=== PATIENT | female | born 1975 | race African-American/Black ===

== ENCOUNTER → 2021-02-01 00:40 | Outpatient (CLI) | payer OTHER, MEDICAID, SELFPAY ==
[2021-02-01 19:49] LABS: SARS-CoV-2 RNA PCR Negative
== END ==
PROVIDERS: PCP Internal Medicine; Visit Provider Obstetrics & Gynecology Gynecology
DX: Z01.812 Encounter for preprocedural laboratory examination (principal); Z20.822 Contact with and (suspected) exposure to COVID-19
CPT/HCPCS: C9803; U0003; U0005

== ENCOUNTER 2021-02-04 02:15 | Day surgery (SDC) | payer OTHER, MEDICAID, SELFPAY ==
[2021-01-22 11:35] VITALS: BMI 35.7
--- NOTE | 2021-02-04 07:43 | PM.HPGS ---
History of Present Illness History of Present Illness Consent: Risks, benefits, and alternatives have been discussed and questions answered. Patient agrees to proceed with procedure. Chief complaint: Menorrhagia, fibroids Narrative: Shelly Reyes is a 46 year old female with heavy cycles lasting for approximately 5 days using a tampon and pad which requires changing every 2 hours. Cycle timing is normal. Ultrasound shows an enlarged uterus with known fibroids. It is recommended to proceed with hysteroscopy, D&C and possible MyoSure. Risks of infection, bleeding, perforation, and fluid imbalance are reviewed. Patient's questions are answered. Patient states understanding and wishes to proceed. [facility] Past Medical History Medical History (Updated 02/04/21 @ 07:47 by Nirmala Ramirez MD) Anemia Asthma Heart murmur Hypertension (normal spontaneous vaginal delivery) x 1 term with cerclage x1 at 23 wks with cervical incompetence Surgical History Surgical History (Updated 02/04/21 @ 07:46 by Nirmala Ramirez MD) S/P ectopic treated with methotrexate not surgical Family History Family History (Updated 09/15/19 @ 13:51 by Faviola Griffin CMA) Father Cerebrovascular accident Hypertension Mother Hypertension Stented coronary artery Hyperlipidemia Rheumatoid arthritis Sibling Hypertension Rheumatoid arthritis Social History Social History (Updated 09/13/19 @ 19:43 by Dania Richey) Smoking status: Never smoker Second hand tobacco smoke exposure: Yes (parent smoked in house as a child) Alcohol intake: never Substance use: never Substance use type: does not use Living arrangements: with family Spiritual care concerns: No Agree to blood products: Yes Meds Home Medications and Allergies Home Medications Medication Instructions Recorded Confirmed Type amlodipine 10 mg PO DAILY 01/22/21 01/22/21 History cholecalciferol (vitamin D3) 125 mcg PO DAILY 01/22/21 01/22/21 History folic acid 400 mcg PO DAILY 01/22/21 01/22/21 History methimazole 5 mg PO DAILY 01/22/21 01/22/21 History omega-3 fatty acids [Fish Oil] 500 mg PO HS 01/22/21 01/22/21 History pyridoxine (vitamin B6) [Vitamin 500 mg PO HS 01/22/21 01/22/21 History B-6] vitamin F72-afzlq acid 1 tablet PO HS 01/22/21 01/22/21 History Allergies Allergy/AdvReac Type Severity Reaction Status Date / Time No Known Allergies Allergy Verified 01/22/21 11:31 Exam Const: General: healthy appearing and alert Orientation/consciousness: patient oriented x3 Resp: Effort & Inspection: normal respiratory effort Auscultation: clear to auscultation bilaterally Cardio: Rate: regular rate Rhythm: regular rhythm GI: GI Palp: Yes Soft to palpation, No Tenderness to palpation present (GI) and No Palpable mass present : External Female Exam: normal external appearance Speculum Exam - Vagina: normal appearance of the vagina and normal vaginal discharge Speculum Exam - Cervix: normal appearance of the cervix Bimanual exam- vagina & uterus: consistency normal and enlarged (at umbilicus) Bimanual Exam- Adnexa, other: normal adnexae and No adnexal tenderness Neuro: General: patient oriented x3 Assessment and Plan Assessment and plan (1) Menorrhagia: Code(s): N92.0 - Excessive and frequent menstruation with regular cycle Status: Acute Assessment and Plan: Plan is to proceed with hsyteroscopy with D&C and possible myosure if submucosal fibroids noted (2) Fibroids: Code(s): D21.9 - Benign neoplasm of connective and other soft tissue, unspecified Status: Acute
[2021-02-04 08:19] VITALS: BP 125/71; PULSE 77; RESP 16; TEMP 36.6; O2SAT 100
[2021-02-04] MEDS: ACETAMINOPHEN 500 MG TABLET 1000 MG PO (08:40)
[2021-02-04] MEDS: LACTATED RINGERS 1,000 ML 30 ML IV CONT ×2 (08:54→12:59)
--- NOTE | 2021-02-04 09:09 | WPDANESEPPF ---
Anes - Initial Pre Proc Eval Procedure: Operation Date: 02/04/21 10:30 Proposed Procedures p Hysteroscopy Dilation and Curettage With Possible Myosure - Nirmala Ramirez MD Date/Time: 02/04/21 09:09 Surgeon: Nirmala Ramirez MD Pre Op Diagnosis: Menorrhagia, fibroids Patient Data Age: 46 Gender: F Height: 5 ft 5 in Weight: 97.1 kg Last Vital Signs Temp 36.6 C 02/04/21 08:19 Pulse 77 02/04/21 08:19 Resp 16 02/04/21 08:19 BP 125/71 02/04/21 08:19 Pulse Ox 100 02/04/21 08:19 Allergies Allergy/AdvReac Type Severity Reaction Status Date / Time No Known Allergies Allergy Verified 02/04/21 08:23 Home Medications Medication Instructions Recorded Confirmed Type amlodipine 10 mg PO DAILY 01/22/21 02/04/21 History cholecalciferol (vitamin D3) 125 mcg PO DAILY 01/22/21 02/04/21 History folic acid 400 mcg PO DAILY 01/22/21 02/04/21 History methimazole 5 mg PO DAILY 01/22/21 02/04/21 History omega-3 fatty acids [Fish Oil] 500 mg PO HS 01/22/21 02/04/21 History pyridoxine (vitamin B6) [Vitamin 500 mg PO HS 01/22/21 02/04/21 History B-6] vitamin T25-pglwh acid 1 tablet PO HS 01/22/21 02/04/21 History Patient hx anesthesia problems: none Family hx anesthesia problems: none PMFSH Past Medical History Medical History Anemia Asthma Heart murmur Hypertension Hyperthyroidism (normal spontaneous vaginal delivery) x 1 term with cerclage x1 at 23 wks with cervical incompetence Surgical History Surgical History S/P ectopic treated with methotrexate not surgical Family History Family History Father Cerebrovascular accident Hypertension Mother Hypertension Stented coronary artery Hyperlipidemia Rheumatoid arthritis Sibling Hypertension Rheumatoid arthritis Social History Social History Smoking status: Never smoker Second hand tobacco smoke exposure: Yes (parent smoked in house as a child) Alcohol intake: never Substance use: never Substance use type: does not use Living arrangements: with family Spiritual care concerns: No Agree to blood products: Yes Anes - Eval Final PreProcedure Day of Procedure 02/04/21 09:09 Patient weight: obese Heart: regular rate and rhythm Lungs: clear to auscultation Airway: Mallampati scale class II Neurological: alert and oriented Last oral intake: >/= 8 hours ASA classification: III Emergent: no Anesthetic plan: proceed Anesthesia type and monitoring: general GIVS and standard monitoring Informed Consent: The patient's anesthetic plan and its attendant risks and benefits were discussed with the patient/family/POA. Questions were solicited and answers provided to the satisfaction of the patient/family/POA.
--- NOTE | 2021-02-04 11:25 | SUR.PREOP ---
pt informed of delay in procedure.
--- NOTE | 2021-02-04 12:56 | SUR.OPER ---
EBL:10cc
--- NOTE | 2021-02-04 13:01 | PM.PROC ---
Procedure Note - Detailed Date of procedure: 02/04/21 Pre-op diagnosis: Menorrhagia, fibroids Post-op diagnosis: same Procedure performed: D&C hysteroscopy Description of procedure: The patient was taken to the operating room and placed under anesthesia in the dorsal lithotomy position. She has prepped and draped in usual sterile fashion. The cervix is grasped on the anterior lip with a tenaculum, injected with 1% lidocaine, and dilated with Hegar. The uterus is sounded to 10cm. The diagnostic hysteroscope was placed with no abnormalities noted. The medium sharp curette is used to sharply curette the endometrium until a good uterine cry was noted in all areas. Minimal material is obtained consistent with a mostly atrophic appearance of the endometrium. All instruments are removed. The patient was awakened from anesthesia and taken to recovery in stable condition. Sponge, needle, and instrument counts are correct per the OR staff. Anesthesia: MAC and local Surgeon: Nirmala Ramirez MD Estimated blood loss (mL): 5 Drains: No Packing: No Pathology: yes (endometrial curettings) Complications: Other complications (fluid in 1000 fluid out 140) Condition: stable Disposition: PACU Findings: uterus 10 cm; grossly normal appearing endometrium
[2021-02-04 13:05] VITALS: BP 113/67; PULSE 65; RESP 14; O2SAT 100
[2021-02-04 13:25] VITALS: BP 132/80
[2021-02-04 13:50] VITALS: BP 134/80
[2021-02-04 14:10] VITALS: BP 131/72
== END 2021-02-04 14:30 | disposition home or self-care (01) ==
PROVIDERS: PCP Internal Medicine; Visit Provider Obstetrics & Gynecology Gynecology
PROC: 0U5B8ZZ Destruction of Endometrium, Via Natural or Artificial Opening Endoscopic (ICD-10-PCS; CPT 58563; principal; 2021-02-04 10:30)
DX: N92.0 Excessive and frequent menstruation with regular cycle (principal); N85.8 Other specified noninflammatory disorders of uterus; D64.9 Anemia, unspecified; J45.909 Unspecified asthma, uncomplicated; R01.1 Cardiac murmur, unspecified; E66.9 Obesity, unspecified; Z68.35 Body mass index [BMI] 35.0-35.9, adult; I10 Essential (primary) hypertension; E05.90 Thyrotoxicosis, unspecified without thyrotoxic crisis or storm
CPT/HCPCS: 58558; 88305; A9270; C9803; J2250; J2704; J3010; J7030; J7120; U0003; U0005

== ENCOUNTER → 2021-04-05 03:02 | Outpatient (CLI) | payer OTHER, MEDICAID, SELFPAY ==
[2021-04-05 19:50] LABS: SARS-CoV-2 RNA PCR Negative
== END ==
PROVIDERS: PCP Internal Medicine; Visit Provider Obstetrics & Gynecology Gynecology
DX: Z01.812 Encounter for preprocedural laboratory examination (principal); Z20.822 Contact with and (suspected) exposure to COVID-19
CPT/HCPCS: C9803; U0003; U0005

== ENCOUNTER 2021-04-08 00:58 | Day surgery (SDC) | payer OTHER, MEDICAID, SELFPAY ==
[2021-04-03 13:57] VITALS: BMI 34.4
[2021-04-08] MEDS: ACETAMINOPHEN 500 MG TABLET 1000 MG PO (06:35)
[2021-04-08 06:37] VITALS: BMI 34.6
[2021-04-08 06:38] VITALS: BP 140/77; PULSE 69; RESP 18; TEMP 36.5; O2SAT 100
--- NOTE | 2021-04-08 06:41 | WPDANESEPPF ---
Anes - Initial Pre Proc Eval Procedure: Operation Date: 04/08/21 07:30 Proposed Procedures p Hysteroscopy Geri Ablation - Nirmala Ramirez MD Date/Time: 04/08/21 06:41 Surgeon: Nirmala Ramirez MD Pre Op Diagnosis: menorrhagia Patient Data Age: 46 Gender: F Height: 1.65 m Weight: 94.4 kg Last Vital Signs Temp 36.5 C 04/08/21 06:38 Pulse 69 04/08/21 06:38 Resp 18 04/08/21 06:38 BP 140/77 04/08/21 06:38 Pulse Ox 100 04/08/21 06:38 Allergies Allergy/AdvReac Type Severity Reaction Status Date / Time No Known Allergies Allergy Verified 04/08/21 06:29 Home Medications Medication Instructions Recorded Confirmed Type amlodipine 10 mg PO DAILY 01/22/21 04/08/21 History cholecalciferol (vitamin D3) 125 mcg PO DAILY 01/22/21 04/08/21 History folic acid 400 mcg PO DAILY 01/22/21 04/08/21 History methimazole 5 mg PO DAILY 01/22/21 04/08/21 History omega-3 fatty acids [Fish Oil] 500 mg PO HS 01/22/21 04/08/21 History pyridoxine (vitamin B6) [Vitamin 500 mg PO HS 01/22/21 04/08/21 History B-6] vitamin X09-onwrk acid 1 tablet PO HS 01/22/21 04/08/21 History Patient hx anesthesia problems: none Family hx anesthesia problems: none PMFSH Past Medical History Medical History (Updated 04/08/21 @ 06:42 by Jarocho Hillman DO) Anemia Asthma Heart block AV second degree Heart murmur Hypertension Hyperthyroidism (normal spontaneous vaginal delivery) x 1 term with cerclage x1 at 23 wks with cervical incompetence Surgical History Surgical History S/P ectopic treated with methotrexate not surgical Family History Family History Father Cerebrovascular accident Hypertension Mother Hypertension Stented coronary artery Hyperlipidemia Rheumatoid arthritis Sibling Hypertension Rheumatoid arthritis Social History Social History Smoking status: Never smoker Alcohol intake: never Substance use: never Substance use type: does not use Living arrangements: with family Additional living arrangements comments: WITH SON Spiritual care concerns: No Agree to blood products: Yes Anes - Eval Final PreProcedure Day of Procedure 04/08/21 06:41 Patient weight: obese Heart: regular rate and rhythm Lungs: clear to auscultation and normal air movement Airway: Mallampati scale class II Neurological: alert and oriented Last oral intake: >/= 8 hours ASA classification: III Emergent: no Anesthetic plan: proceed Anesthesia type and monitoring: general GIVS and standard monitoring Informed Consent: The patient's anesthetic plan and its attendant risks and benefits were discussed with the patient/family/POA. Questions were solicited and answers provided to the satisfaction of the patient/family/POA.
[2021-04-08] MEDS: LACTATED RINGERS 1,000 ML 30 ML IV CONT (06:46)
--- NOTE | 2021-04-08 06:58 | PM.HPGS ---
History of Present Illness History of Present Illness Consent: Risks, benefits, and alternatives have been discussed and questions answered. Patient agrees to proceed with procedure. Chief complaint: menorrhagia Narrative: Shelly Reyes is a 46 year old female with heavy cycles for the past several years. She underwent hysteroscopy D and C with benign findings. Ultrasound shows intramural fibroids but there were no submucosal fibroids. Plan is to proceed with endometrial ablation for treatment. Other options were discussed but due to current cardiac history were declined. Patient was initially going to have a pacemaker placed however they have decided that is not necessary. Patient's blood pressure had been eratic but is now under good control. The risks of procedure including infection, bleeding, perforation, and device failure were all reviewed. The success of the ablation was also discussed. Patient voices understanding and agrees to proceed. Review of Systems Review of Systems: Narrative: not repeated day of surgery; patient states no changes in status PMFSH Past Medical History Medical History (Updated 04/08/21 @ 06:42 by Jarocho Hillman DO) Anemia Asthma Heart block AV second degree Heart murmur Hypertension Hyperthyroidism (normal spontaneous vaginal delivery) x 1 term with cerclage x1 at 23 wks with cervical incompetence Surgical History Surgical History S/P ectopic treated with methotrexate not surgical Family History Family History Father Cerebrovascular accident Hypertension Mother Hypertension Stented coronary artery Hyperlipidemia Rheumatoid arthritis Sibling Hypertension Rheumatoid arthritis Social History Social History Smoking status: Never smoker Alcohol intake: never Substance use: never Substance use type: does not use Living arrangements: with family Additional living arrangements comments: WITH SON Spiritual care concerns: No Agree to blood products: Yes Meds Home Medications and Allergies Home Medications Medication Instructions Recorded Confirmed Type amlodipine 10 mg PO DAILY 01/22/21 04/08/21 History cholecalciferol (vitamin D3) 125 mcg PO DAILY 01/22/21 04/08/21 History folic acid 400 mcg PO DAILY 01/22/21 04/08/21 History methimazole 5 mg PO DAILY 01/22/21 04/08/21 History omega-3 fatty acids [Fish Oil] 500 mg PO HS 01/22/21 04/08/21 History pyridoxine (vitamin B6) [Vitamin 500 mg PO HS 01/22/21 04/08/21 History B-6] vitamin U42-glxan acid 1 tablet PO HS 01/22/21 04/08/21 History Allergies Allergy/AdvReac Type Severity Reaction Status Date / Time No Known Allergies Allergy Verified 04/08/21 06:29 Vital Signs Vital Signs - 24 hr 04/08/21 06:38 Temperature 97.7 F Pulse Rate 69 Respiratory Rate 18 Blood Pressure 140/77 Pulse Oximetry 100 Exam Const: General: healthy appearing and alert Orientation/consciousness: patient oriented x3 Resp: Effort & Inspection: normal respiratory effort Auscultation: clear to auscultation bilaterally Cardio: Rate: regular rate Rhythm: regular rhythm GI: GI Palp: Yes Soft to palpation, No Tenderness to palpation present (GI) and No Palpable mass present : External Female Exam: normal external appearance Speculum Exam - Vagina: normal appearance of the vagina and normal vaginal discharge Speculum Exam - Cervix: normal appearance of the cervix Bimanual exam- vagina & uterus: enlarged (approximately 20 wk size) Bimanual Exam- Adnexa, other: normal adnexae and No adnexal tenderness Neuro: General: patient oriented x3 Assessment and Plan Assessment and plan (1) Menorrhagia: Code(s): N92.0 - Excessive and frequent menstruation with regular cycle Status: Acute As
--- NOTE | 2021-04-08 07:03 | WPDHPUPDATE1 ---
History and Physical Update Update Date/Time: 04/08/21 07:03 History and Physical has been reviewed, including an updated exam of the patient. There are NO changes in the patient's condition. Risks, benefits, and alternatives have been discussed and questions answered. Patient agrees to proceed with procedure.
[2021-04-08] MEDS: KETOROLAC 30 MG/ML VIAL (*BKC) IV PUSH (07:39)
--- NOTE | 2021-04-08 07:51 | P.OP_ITS ---
Procedure Note - Detailed Date of Procedure 04/08/21 Pre-op Diagnosis menorrhagia Post-op Diagnosis same Procedure Performed Hysteroscopy with Geri ablation Surgeon Nirmala Ramirez MD Anesthesia MAC and local Findings Uterus sounds to 10cm and is anteverted; appears grossly normal. Description of Procedure The patient was taken to the operating room and placed under anesthesia in the dorsal lithotomy position. She was prepped and draped in the usual sterile fashion. The bivalve speculum was placed in the vagina, the cervix is grasped on the anterior lip with a tenaculum, and the cervix is injected with 1% lidocaine. The uterus is sounded to 10cm. The cervix is serially dilated with Hegar. The diagnostic hysteroscope was placed with no abnormalities noted. The Geri device is opened and placed. The length was set at 6.5cm. Cavity asses sment passed on the 1st attempt. Treatment cycle lasted the full 2 minutes. The device is removed and the hysteroscope replaced. Good ablation effect is noted. All instruments are removed and the patient is taken to recovery in stable condition. Estimated Blood Loss 5 Drains No Packing No Pathology none sent Complications No immediate complications Condition stable Disposition PACU
[2021-04-08 07:57] VITALS: BP 112/57; PULSE 70; RESP 14; O2SAT 97
[2021-04-08 08:27] VITALS: BP 110/66; PULSE 62; RESP 14
[2021-04-08 08:50] VITALS: BP 101/62; PULSE 62; RESP 14
== END 2021-04-08 09:00 | disposition home or self-care (01) ==
PROVIDERS: PCP Internal Medicine; Visit Provider Obstetrics & Gynecology Gynecology
PROC: 0U5B8ZZ Destruction of Endometrium, Via Natural or Artificial Opening Endoscopic (ICD-10-PCS; CPT 58563; principal; 2021-04-08 07:30)
DX: N92.0 Excessive and frequent menstruation with regular cycle (principal); D64.9 Anemia, unspecified; G43.909 Migraine, unspecified, not intractable, without status migrainosus; I44.1 Atrioventricular block, second degree; I10 Essential (primary) hypertension; E03.9 Hypothyroidism, unspecified; E66.9 Obesity, unspecified; Z68.34 Body mass index [BMI] 34.0-34.9, adult
CPT/HCPCS: 58563; A9270; C9803; J1885; J2250; J2704; J3010; J7030; J7120; U0003; U0005